=== PATIENT | female | born 2000 | race Caucasian/White ===

== ENCOUNTER 2020-05-03 13:55 | Emergency (ER) | payer OTHER ==
[~2020-05-03] VITALS: Ht 170.2 cm; Wt 59.0 kg
[2020-05-03] MEDS ORDERED: diphenhydrAMINE HCL 50 MG/ML VIAL ONE (14:15)
[2020-05-03] MEDS ORDERED: methylPREDNISolone SOD SUCC 125 MG/2ML VIAL ONE (14:15)
[2020-05-03] MEDS ORDERED: FAMOTIDINE/PF INJ 20 MG/2 ML VIAL IV ONE (14:15)
[2020-05-03] MEDS: diphenhydrAMINE HCL 50 MG/ML VIAL IV ONE (14:27)
[2020-05-03] MEDS: IV NS 0.9% 1,000 ML BAG IV ONE (14:27)
[2020-05-03] MEDS: methylPREDNISolone SOD SUCC 125 MG/2ML VIAL IV ONE (14:27)
[2020-05-03] MEDS: FAMOTIDINE/PF INJ 20 MG/2 ML VIAL IV ONE (14:28)
--- NOTE | 2020-05-03 14:29 | NUR ---
C/O ALLERGIC REACTION FROM PEAN[place]S, GENERALIZED REDNESS, SWOLLEN TONGUE. PT AAOX4, VSS. RR EVEN & UNLABORED. DENIES CP, SOB, DIZZINESS, N/V AT THIS TIME. PT SEEN & EVAL'D BY DR. LAUREN. MEDICATED ORDERED, PT SETH WELL. WILL CONT TO MONITOR.
--- NOTE | 2020-05-03 15:50 | NUR ---
Pt's allergic reaction have subsided. not in resp distress.
--- NOTE | 2020-05-03 15:50 | NUR ---
Patient discharged to home in stable condition. Written and verbal after care instructions given. Patient verbalizes understanding of instruction.IV removed. Catheter intact and site benign. Pressure and 4x4 applied to site. No bleeding noted. Pt ambulatory with a steady gait
[2020-05-03 15:51] VITALS: BP 109/63
== END 2020-05-03 15:53 | disposition home or self-care (01) ==
LOC: ER 13:58
DX: L50.0 Allergic urticaria (principal); Z91.010 Allergy to peanuts; Z91.018 Allergy to other foods
CPT/HCPCS: 96361; 96374; 96375; 99284; J1200; J2930; J3490; J7030